=== PATIENT | female | born 1980 | race Caucasian/White ===

== ENCOUNTER 2019-08-17 13:14 | Emergency (ER) | payer SELFPAY ==
[~2019-08-17] VITALS: Ht 149.9 cm; Wt 57.6 kg
[2019-08-17 13:19] VITALS: Ht 149.9 cm; Wt 57.6 kg
[2019-08-17 15:24] VITALS: BP 147/99
== END 2019-08-17 15:55 | disposition home or self-care (01) ==
LOC: ED 13:14
DX: M54.12 Radiculopathy, cervical region (principal)